=== PATIENT | female | born 1990 | race Caucasian/White ===

== ENCOUNTER 2022-06-21 15:39 | Emergency (ER) | payer SELFPAY ==
[~2022-06-21] VITALS: Ht 167.6 cm; Wt 91.0 kg
[2022-06-21 16:35] LABS: CLARITY URINE CLEAR (CLEAR); COLOR URINE YELLOW (YELLOW); KETONES URINE NEGATIVE (NEGATIVE); LEUKOCYTE ESTERASE URINE NEGATIVE (NEGATIVE); NITRITE URINE NEGATIVE (NEGATIVE); OCCULT BLOOD URINE NEGATIVE (NEGATIVE); PH URINE 6.5 (4.5-8.0); PROTEIN URINE NEGATIVE (NEGATIVE); SPECIFIC GRAVITY URINE 1.019 (1.005-1.030); UROBILINOGEN URINE 0.2 E.U./dL (0.2-1.0)
[2022-06-21 17:17] LABS: BASOPHILS % 0.2 % (0.0-2.0); EOSINOPHILS % 4.3 % (0.0-5.0); HEMOGLOBIN. 12.8 g/dL (12.0-16.0); MEAN CORPUSCULAR HEMOGLOBIN 27.9 pg (28.0-32.0); MEAN PLATELET VOLUME 7.9 fl (7.4-10.4); MONOCYTES % 5.5 % (2.0-8.0); PLATELET 308 x1000/uL (130-400); RED BLOOD CELL COUNT 4.59 mill/uL (4.2-5.4); RED CELL DISTRIBUTION WIDTH 14.5 % (11.6-14.6)
[2022-06-21 17:26] LABS: CHLORIDE 107 mEq/L (98-107)
[2022-06-21] MEDS ORDERED: ONDA4TAB11 PO (21:28)
[2022-06-21] MEDS ORDERED: IBUP-2028 MT (21:28)
[2022-06-21] MEDS ORDERED: ONDANSETRON 4MG ODT PO ONE (21:30)
[2022-06-21] MEDS ORDERED: MECLIZINE 25MG TABLET PO ONE (21:30)
[2022-06-21] MEDS ORDERED: KETOROLAC 60MG/2ML VIAL IM ONE (21:30)
[2022-06-21] MEDS ORDERED: MECLIZINE 12.5MG TABLET PO NR (21:45)
[2022-06-21 22:30] VITALS: BP 134/70
== END 2022-06-21 22:50 | disposition home or self-care (01) ==
LOC: ER 15:39
DX: R51.9 Headache, unspecified (principal); R11.2 Nausea with vomiting, unspecified; R42 Dizziness and giddiness; J45.909 Unspecified asthma, uncomplicated; Z98.890 Other specified postprocedural states; Z88.8 Allergy status to other drugs, medicaments and biological substances
CPT/HCPCS: 36415; 70450; 71045; 80053; 81003; 81025; 82962; 85025; 93005; 96372; 99285; J1885; J8597; Q0162; Z7610